=== PATIENT | female | born 1950 | race Caucasian/White ===

== ENCOUNTER → 2018-06-08 | Outpatient (CLI) | payer MEDICARE, BC ==
--- NOTE | 2018-06-08 13:16 | KCIC ---
3d digital tomography Bilateral History: Routine screening Technique: Bilateral 3d digital tomographic views were obtained with TASS Emily and reviewed on a [employer] workstation. In addition, CAD - computer aided detection was utilized. Comparison: None. Findings: Breast Tissue Density B : The breast tissue is composed of mixed fatty and fibroglandular tissue. There are no suspicious masses, microcalcifications or areas of architectural distortion. Impression: No suspicious findings. BI-RADS Category 1: Negative. Normal interval followup. The patient will receive a letter with the results in the mail. A mammogram does not have 100% sensitivity and therefore a negative imaging study should not delay further work up of a suspicious abnormality. Patient information is entered into the [facility] reminder system using [employer] with a target due date for the next screening mammogram. The patient will receive a reminder. "Our facility is accredited by the [employer] Mammography Program." Electronically signed by: Evens Spencer III, MD (06/08/2018 1:12 PM) [facility]
== END | disposition home or self-care (01) ==
LOC: KCIC MAMMO 08:12
PROVIDERS: ATTEND Family Medicine
DX: Z12.31 Encounter for screening mammogram for malignant neoplasm of breast (principal)
CPT/HCPCS: 77063; 77067

== ENCOUNTER → 2019-02-28 | Outpatient (CLI) | payer MEDICARE, BC ==
[~2019-02-28] MED LIST: ZOLPIDEM 5 MG TABLET. PO ONE
--- NOTE | 2019-03-01 13:18 | SLEEP ---
DATE OF STUDY: 02/28/2019 SLEEP STUDY ATTENDING PHYSICIAN: Belkys Watters MD HISTORY OF PRESENT ILLNESS: The patient is a 68-year-old who weighs 155 pounds with a BMI of 29. The patient's Boles score was 8. The patient underwent sleep study at [facility]. This was a diagnostic study. She had a previous sleep study in 2011 was positive for obstructive sleep apnea. She needs a new CPAP machine. During the night study, the patient spent 463 minutes in bed and slept for 284 minutes with a sleep efficiency of 61%, which was low. Sleep latency was 24 minutes with a REM latency of 414 minutes. Sleep architecture showed increased stage 1 sleep, normal stage 2 sleep, normal slow wave and reduced REM sleep. During the night study, the patient had 6 obstructive apneas, 15 mixed apneas, no central apneas and 47 hypopneas. The patient's apnea hypopnea index was 14 per hour with a supine index of 22 per hour and REM index of 9 per hour. EKG monitoring revealed normal sinus rhythm, average heart rate 80 beats per minute, no sustained arrhythmias observed. Nocturnal oximetry study revealed a mean oxygen saturation 94% with the lowest of 86%. 14% of time oxygen saturation remained between 80% and 89%. PLMS were seen at index of 32 per hour and 8 per hour caused EEG arousals. Due to low AHI, the patient did not meet the split night criteria for CPAP initiation. IMPRESSION: 1. Mild sleep apnea-hypopnea syndrome with moderate increase during supine sleep. Total AHI 14 per hour with a supine AHI of 22 per hour. 2. Nocturnal hypoxia secondary to obstructive sleep apnea. 3. Moderate periodic limb movements. RECOMMENDATIONS: 1. If the patient is clinically symptomatic or has co-morbid conditions, then she would benefit from treatment of sleep apnea with either oral appliance or a trial of CPAP. 2. Weight loss is strongly advised. 3. Avoid supine sleep. 4. Once the patient is optimally treated, then follow up in 4-6 weeks to assess compliance with treatment and to document clinical improvement. 5. Caution regarding driving until symptoms of sleep apnea resolve with above recommendation. 6. The patient should also be further evaluated for symptoms of restless legs during the day. ZHENG HENNESSY MD DR: MOISE/tita JOB#: [id number] / [id number] BELKYS Kingston MD [facility]
== END | disposition home or self-care (01) ==
LOC: SLPLAB 19:10
PROVIDERS: ATTEND Family Medicine
DX: G47.33 Obstructive sleep apnea (adult) (pediatric) (principal); G47.34 Idiopathic sleep related nonobstructive alveolar hypoventilation
CPT/HCPCS: 95810

== ENCOUNTER → 2019-03-27 | Outpatient (CLI) | payer MEDICARE, BC ==
--- NOTE | 2019-03-28 13:46 | SLEEP ---
DATE OF STUDY: 03/27/2019 OBJECTIVE: The patient is a 68-year-old female previously studied on 02/28/2019. The apnea-hypopnea index was 14 events per hour of sleep and the patient now returns for CPAP titration study. INTERPRETATION: Sleep architecture is characterized by sleep efficiency of 86% across the 7.1 hours of recording time. Stage volumes are normal for age. The overall apnea-hypopnea index is 2.6 events per hour of sleep. CPAP titration is accomplished, the apnea-hypopnea index on 9 cm of CPAP is 0 events per hour of sleep. An 85 periodic limb movements of sleep occurred per hour, 11 per hour associated with arousal. No cardiac arrhythmias are observed. IMPRESSION: Successful CPAP titration on 9 cm using a Respironics DreamWear nasal cushion, medium size. RECOMMENDATIONS: 1. The patient should be established on this setting. 2. She should avoid sedatives and alcohol and pursue weight loss. Thank you for letting us help with the patient's care. OLGA CASTANO MD DR: MIGUEL/tita JOB#: [id number] / [id number] ZHENG Rosa MD, MARGARET MD
== END | disposition home or self-care (01) ==
LOC: RT 18:50
PROVIDERS: ATTEND Family Medicine
DX: G47.33 Obstructive sleep apnea (adult) (pediatric) (principal)
CPT/HCPCS: 95811

== ENCOUNTER 2019-05-31 08:58 | Observation (INO) | payer MEDICARE, BC ==
[~2019-05-31] VITALS: Ht 154.9 cm; Wt 70.0 kg
[2019-05-31] VITALS (16 sets, daily range): BP systolic 128–187; BP diastolic 69–88
[2019-05-31] MEDS ORDERED: LIDOCAINE 1% PF 2 ML VIAL. ONE (09:37)
[2019-05-31 09:38] LABS: HEMATOCRIT 38.1 % (36.0-47.0); HEMOGLOBIN 12.8 g/dL (12.0-15.5); RED BLOOD COUNT 4.34 x10^6/uL (3.50-5.40); RED CELL DISTRIBUTION WIDTH 14.2 % (11.5-14.5); WHITE BLOOD COUNT 6.4 x10^3/uL (4.0-11.0)
[2019-05-31] MEDS ORDERED: IODIXANOL 320 MG/ML 100 ML VIAL. ONE (09:38)
[2019-05-31] MEDS ORDERED: HEPARIN for IV BOLUS 10,000 UNIT/10 ML VIAL. ONE (09:41)
[2019-05-31] MEDS ORDERED: NITROGLYCERIN 200 MCG/2 ML SYRINGE FOR CATH/VASC LAB. ONE (09:41)
[2019-05-31] MEDS ORDERED: VERAPAMIL 5 MG/2 ML VIAL. ONE (09:41)
[2019-05-31] MEDS ORDERED: fentaNYL PF VIAL 100 MCG/2 ML VIAL ONE (09:41)
[2019-05-31] MEDS ORDERED: MIDAZOLAM HCL/PF 2 MG/2 ML VIAL. ONE ×2 (09:41→11:01)
[2019-05-31] MEDS ORDERED: BUTA1CAP31 PO (09:43)
[2019-05-31] MEDS ORDERED: CALC500T30 PO (09:43)
[2019-05-31] MEDS ORDERED: FLUT9.9S NS (09:43)
[2019-05-31] MEDS ORDERED: METF10007 PO (09:43)
[2019-05-31] MEDS ORDERED: IRBE300T3 PO (09:43)
[2019-05-31] MEDS ORDERED: DIAZ5TAB4 PO (09:43)
[2019-05-31] MEDS ORDERED: GUAI600T47 PO (09:43)
[2019-05-31] MEDS ORDERED: CETI10TA22 PO (09:43)
[2019-05-31] MEDS ORDERED: ASPI325T8 PO (09:43)
[2019-05-31] MEDS ORDERED: AMLO5TAB10 PO (09:43)
[2019-05-31] MEDS ORDERED: NAPR220C4 PO (09:43)
[2019-05-31] MEDS ORDERED: CHOL400C2 PO (09:43)
[2019-05-31] MEDS ORDERED: MULT-735 PO (09:43)
[2019-05-31] MEDS ORDERED: ZINC50TA39 PO (09:43)
[2019-05-31] MEDS ORDERED: MAGN250T10 PO (09:43)
[2019-05-31] MEDS ORDERED: ATOR40TA59 PO (09:43)
[2019-05-31] MEDS ORDERED: TRIA10.8 NS (09:43)
[2019-05-31 09:44] LABS: CALCIUM 9.6 mg/dL (8.5-10.1); CREATININE 0.8 mg/dL (0.6-1.0); GFR 71.3; POTASSIUM 4.1 mmol/L (3.5-5.1)
[2019-05-31 09:46] LABS: PROTHROMBIN TIME PATIENT 12.7 SEC (11.7-14.0)
[2019-05-31] MEDS ORDERED: fentaNYL PF VIAL 100 MCG/2 ML VIAL IV ONE (11:00)
[2019-05-31] MEDS ORDERED: LIDOCAINE 1% PF 2 ML VIAL. INJ ONE (11:00)
[2019-05-31] MEDS ORDERED: CONTRAST GIVEN. MC PRN (11:00)
[2019-05-31] MEDS ORDERED: HEPARIN for IV BOLUS 10,000 UNIT/10 ML VIAL. IART ONE (11:00)
[2019-05-31] MEDS ORDERED: VERAPAMIL 5 MG/2 ML VIAL. IART ONE (11:00)
[2019-05-31] MEDS ORDERED: NITROGLYCERIN 200 MCG/2 ML SYRINGE FOR CATH/VASC LAB. IART ONE (11:00)
[2019-05-31] MEDS ORDERED: IODIXANOL 320 MG/ML 100 ML VIAL. IART ONE (11:00)
[2019-05-31] MEDS ORDERED: MIDAZOLAM HCL/PF 2 MG/2 ML VIAL. IV ONE (11:00)
[2019-05-31] MEDS ORDERED: TIROFIBAN 5MG -0.9% NS 100 ML IV ONE (11:11)
[2019-05-31] MEDS ORDERED: ASPI81TA50 PO (11:17)
[2019-05-31] MEDS ORDERED: PRASUGREL 10 MG TABLET. ONE ×2 (11:25→11:53)
[2019-05-31] MEDS ORDERED: HEPARIN for IV BOLUS 10,000 UNIT/10 ML VIAL. IV ONE (11:30)
[2019-05-31] MEDS ORDERED: NITROGLYCERIN 200 MCG/2 ML SYRINGE FOR CATH/VASC LAB. ICAR ONE (11:30)
[2019-05-31] MEDS: TIROFIBAN 5MG -0.9% NS 100 ML IV PRN ×2 (11:47→14:57)
[2019-05-31] MEDS ORDERED: PRASUGREL 10 MG TABLET. PO ONE (12:00)
--- NOTE | 2019-05-31 12:08 | CARD ---
MR#: [id number] Date of Study: 05/31/2019 Ordering Physician: CLEM QUINONES, Referring Physician: CLEM QUINONES, Tech: Jaja Vines APPROVED REPORT Technologist: Jaja Vines Nurse: Edel Claros R.N. Procedure(s) performed: fl time: 14.1 mins dose: 69 gy/cm2 contrast: 136 ml moderate sedation: 100 mins LHC, Coronary angiography PCI of the LAD iFR of the LAd HISTORY The patient is a 68 year-old female with a history of : coronary artery disease, hypertension, dyslip idemia. INDICATION The indication(s) include : unstable angina , dyspnea. CSHA Clinical Frailty Scale CSHA Clinical Frailty Scale: Mildly Frail Heart Failure Heart Failure: No PROCEDURE NARRATIVE INFORMED CONSENT: After explaining the risks and benefits of the procedure and alternatives, informed consent was obtained. The patient was brought electively to the cardiac catheterization lab. A timeout was performed confi rming the patient's name, date of , procedure, and site of procedure. All necessary personnel w ere wearing the appropriate protective equipment and radiation monitor devices. (See nursing notes for medications administered). ACCESS: The right wrist was sterilely prepped and draped in the usual fashion. The right wrist was infiltrat ed with 1 mL of 2% lidocaine for subcutaneous anesthesia. A 6 [place]ian Terumo glide sheath was inserte d into the right radial artery without difficulty. CORONARY ANGIOGRAPHY: Right and left coronary angiography was performed using a 6Fr TIG 4.0 catheter. Left ventricular en d diastolic pressure was obtained with a pigtail catheter and pullback was performed after left ventr iculography. All catheter exchanges and advancements were performed over a guidewire. FINDINGS: HEMODYNAMICS: LVEDP 12 mm Hg No gradient on LV to aortic pullback. AO: 140/70 LEFT VENTRICULOGRAM: EF 55% Anterobasal: Normal. Anterolateral: Normal Apical: Normal Diaphragmatic: Normal Posterobasal: Normal CORONARY ANGIOGRAPHY: LM - anatomic seperate ostia of the LAD/LCx. LAD is a large caliber vessel with heavy calcification and a proximal 80% stenosis. LCx is a large caliber dominant vessel with normal angiographic appearance. OM1 is a moderate caliber vessel with normal angiographic appearance. LPDA is a small caliber vessel with normal angiographic appearance. RCA is a small caliber non-dominant vessel with moderate up to 50% irregularities. INTERVENTIONAL TECHNIQUE: iFR of the LAD and PCI of the LAD Due to the patient's presenting symptoms of unstable angina and severe LAD stenosis a physiologic avery dy was performed to confirm ischemia in the LAD territory. Heparin and tirofiban were used for antico agulation. Through a 5 [place]ian EBU 3.5 guide catheter a 0.014 inch pressure wire was advanced to the d istal LAD after normalization. The initial IFR value was measured at 0.76. After confirmation of isch emia in this territory the proximal LAD lesion was then angioplastied with a 3.0 x 12 mm balloon at 1 2 kiara. The lesion was then stented with a 3.0 x 15 mm Alpine drug-eluting stent and postdilated with a 3 mm noncompliant balloon at 18 kiara. Final post-PCI angiography revealed excellent stent expansion with SUGAR-3 flow in the vessel and no evidence of guide or wire related complications. Post PCI IFR v alue was 0.92. The patient tolerated the procedure well. This was a complex case due to significant L AD calcification making maneuvering of balloons and stents more difficult. CLOSURE: At case completion the right radial sheath was removed and a Terumo radial band was applied with 13 m l of air. COMPLICATIONS: The patient tolerated the procedure well and there were no immediate complications. SUGAR Flow SUGAR Flow (Pre-Intervention): SUGAR-3 SUGAR Flow (Post-Intervention): SUGAR-3 Conclusion 1. Normal left sided filling pressures. 2. Normal LV systolic function. 3. Two vessel CAD with culprit lesion in the proximal to mid LAD 4. Positive iFR of the LAD at 0.76 5. Successful PCI of the proximal LAD with implantation of a Xience Alpine 3.0/15 mm NISA. Recommendations 1. ASA 81mg daily 2. Prasugrel 10mg daily 3. High dose statin therapy and cardiac rehab therapy. Signed by : Clem Quinones, Electronically Approved : 05/31/2019 12:08:01
[2019-05-31] MEDS ORDERED: AMIODARONE 150 MG in IV DEXTROSE 5% 100ML 100 ML IV PRN (14:15)
[2019-05-31] MEDS ORDERED: ATROPINE 0.5 MG/5 ML DISP.SYRINGE. IV PRN (14:15)
[2019-05-31] MEDS ORDERED: diazePAM 5 MG TABLET PO PRN (14:15)
[2019-05-31] MEDS ORDERED: 0.9 % SODIUM CHLORIDE 10 ML DISP.SYRIN. IV PRN (14:15)
[2019-05-31] MEDS ORDERED: ACETAMINOPHEN 325 MG TABLET. PO PRN (14:15)
[2019-05-31] MEDS ORDERED: NITROGLYCERIN SUBLINGUAL 0.4 MG BOTTLE OF 25. SL PRN (14:15)
[2019-05-31] MEDS ORDERED: LIDOCAINE 2% 100 MG/5 ML SYRINGE. IV PRN (14:15)
[2019-05-31] MEDS ORDERED: fentaNYL PF VIAL 100 MCG/2 ML VIAL IV PRN (14:15)
[2019-05-31] MEDS ORDERED: BUTALB/APAP/CAFEIN 50/325/40MG TABLET. PO PRN (15:00)
[2019-05-31] MEDS ORDERED: ATORVASTATIN CALCIUM 40 MG TABLET. PO SCH (21:00)
[2019-05-31] MEDS ORDERED: amLODIPine BESYLATE 5 MG TABLET PO SCH (21:00)
[2019-05-31] MEDS ORDERED: CETIRIZINE HCL 10 MG TABLET. PO SCH (21:00)
[2019-06-01 03:00] VITALS: BP 149/72
[2019-06-01 04:35] LABS: CHOLESTEROL/HDL RATIO 3.6; CREATININE 0.8 mg/dL (0.6-1.0); GFR 71.3; POTASSIUM 3.6 mmol/L (3.5-5.1)
[2019-06-01 07:30] VITALS: BP 166/97
[2019-06-01] MEDS ORDERED: ASPIRIN ENTERIC COATED 81 MG TABLET.DR. PO SCH ×2 (08:00→09:00)
[2019-06-01] MEDS ORDERED: PRASUGREL 10 MG TABLET. PO SCH (08:00)
[2019-06-01] MEDS ORDERED: CALCIUM CARBONATE 500 MG TABLET PO SCH (09:00)
[2019-06-01] MEDS ORDERED: LOSARTAN POTASSIUM 50 MG TABLET. PO SCH (09:00)
[2019-06-01] MEDS ORDERED: FLUTICASONE 50MCG/NASAL SPRAY 16GM BOTTLE. NS SCH (09:00)
[2019-06-01] MEDS ORDERED: MULTIVITAMIN with MINERAL TABLET. PO SCH (09:00)
[2019-06-01] MEDS ORDERED: CHOLECALCIFEROL (VITAMIN D3) 1,000 UNIT TABLET PO SCH (09:00)
[2019-06-01] MEDS ORDERED: MAGNESIUM OXIDE 400 MG TABLET PO SCH (09:00)
--- NOTE | 2019-06-01 09:54 | PDOC3 ---
Discharge Summary Visit Information Date of Admission: May 31, 2019 Date of Discharge: Jun 01, 2019 Admitting Diagnosis: CAD, UA features Final Diagnosis CAD, S/P PCI/NISA to LAD Brief Hospital Course Allergies Allergies Coded Allergies Type Severity Reaction Last Updated Verified Sulfa (Sulfonamide Antibiotics) Allergy Unknown 05/31/19 Yes egg Allergy Unknown 05/31/19 Yes milk Allergy Unknown 05/31/19 Yes wheat Allergy Unknown 05/31/19 Yes Vital Signs Vital Signs Date Time Temp Pulse Resp B/P (MAP) Pulse Ox O2 Delivery O2 Flow Rate FiO2 06/01/19 09:23 80 166/97 06/01/19 07:30 98.2 16 97 Room Air 98.2 05/31/19 11:49 2.0 Lab Results Laboratory Tests Test 05/31/19 09:25 05/31/19 09:30 05/31/19 12:34 05/31/19 17:02 White Blood Count 6.4 x10^3/uL (4.0-11.0) Red Blood Count 4.34 x10^6/uL (3.50-5.40) Hemoglobin 12.8 g/dL (12.0-15.5) Hematocrit 38.1 % (36.0-47.0) Mean Corpuscular Volume 88 fL (79-100) Mean Corpuscular Hemoglobin 30 pg (25-35) Mean Corpuscular Hemoglobin Concent 34 g/dL (31-37) Red Cell Distribution Width 14.2 % (11.5-14.5) Platelet Count 428 x10^3/uL (140-400) Prothrombin Time 12.7 SEC (11.7-14.0) Prothromb Time International Ratio 1.0 (0.8-1.1) Activated Partial Thromboplast Time 27 SEC (24-38) Sodium Level 141 mmol/L (136-145) Potassium Level 4.1 mmol/L (3.5-5.1) Chloride Level 102 mmol/L (98-107) Carbon Dioxide Level 26 mmol/L (21-32) Anion Gap 13 (6-14) Blood Urea Nitrogen 13 mg/dL (7-20) Creatinine 0.8 mg/dL (0.6-1.0) Estimated GFR (Cockcroft-Gault) 71.3 Glucose Level 121 mg/dL (70-99) Calcium Level 9.6 mg/dL (8.5-10.1) Glucose (Fingerstick) 116 mg/dL (70-99) 102 mg/dL (70-99) 120 mg/dL (70-99) Test 05/31/19 20:29 06/01/19 04:00 06/01/19 07:33 Glucose (Fingerstick) 124 mg/dL (70-99) 148 mg/dL (70-99) Sodium Level 142 mmol/L (136-145) Potassium Level 3.6 mmol/L (3.5-5.1) Chloride Level 106 mmol/L (98-107) Carbon Dioxide Level 25 mmol/L (21-32) Anion Gap 11 (6-14) Blood Urea Nitrogen 14 mg/dL (7-20) Creatinine 0.8 mg/dL (0.6-1.0) Estimated GFR (Cockcroft-Gault) 71.3 Glucose Level 113 mg/dL (70-99) Calcium Level 9.0 mg/dL (8.5-10.1) Triglycerides Level 93 mg/dL (0-150) Cholesterol Level 126 mg/dL (0-200) LDL Cholesterol, Calculated 72 mg/dL (0-100) VLDL Cholesterol, Calculated 19 mg/dL (0-40) Non-HDL Cholesterol Calculated 91 mg/dL (0-129) HDL Cholesterol 35 mg/dL (40-60) Cholesterol/HDL Ratio 3.6 Laboratory Tests Test 05/31/19 12:34 05/31/19 17:02 05/31/19 20:29 06/01/19 04:00 Glucose (Fingerstick) 102 mg/dL (70-99) 120 mg/dL (70-99) 124 mg/dL (70-99) Sodium Level 142 mmol/L (136-145) Potassium Level 3.6 mmol/L (3.5-5.1) Chloride Level 106 mmol/L (98-107) Carbon Dioxide Level 25 mmol/L (21-32) Anion Gap 11 (6-14) Blood Urea Nitrogen 14 mg/dL (7-20) Creatinine 0.8 mg/dL (0.6-1.0) Estimated GFR (Cockcroft-Gault) 71.3 Glucose Level 113 mg/dL (70-99) Calcium Level 9.0 mg/dL (8.5-10.1) Triglycerides Level 93 mg/dL (0-150) Cholesterol Level 126 mg/dL (0-200) LDL Cholesterol, Calculated 72 mg/dL (0-100) VLDL Cholesterol, Calculated 19 mg/dL (0-40) Non-HDL Cholesterol Calculated 91 mg/dL (0-129) HDL Cholesterol 35 mg/dL (40-60) Cholesterol/HDL Ratio 3.6 Test 06/01/19 07:33 Glucose (Fingerstick) 148 mg/dL (70-99) Brief Hospital Course Ms. Riggins is a 68 old yo female admitted for planned LHC. As an outpt she was noted with elevated coronary calcium scoring and has been having UA symptoms. She had a successful PCI/NISA to LAD and also noted with moderate disease to RCA. EF normal. Her VS has been stable except that her BP has been mildly elevated. She also has been noted also with noc sinus bradycardia lowest in the mid40s. Otherwise no CP, no SOA and no immediate complications. Right wrist arteriotomy site intact, no erythema or swelling, neurovascular status to right hand intact. She is to resume her metformin tomorrow afternoon and continue her current BP regimen. HBPM bid for 1 week discussed and will adjust as an outpt if above discussed parameters. High dose statin with 81 mg ASA and effient. Unable to place on BB currently due to episodes of bradycardia. Encouraged cardiac rehab. Discharge Information Condition at Discharge: Stable Follow Up: Weeks (4-6) Disposition/Orders: D/C to Home Scheduled Amlodipine Besylate (Amlodipine Besylate) 5 Mg Tablet, 5 MG PO HS for HTN, (Reported) Entered as Reported by: ANGEL BELCHER on 05/31/19 0943 Last Taken: Unknown Dose on 05/30/19 Last Action: Continued on 05/31/19 141 by LINDY GONZALEZ RN Aspirin (Aspir-Low) 81 Mg Tablet., 1 TAB PO DAILY for rx, #30 Ref 3 (Reported) Entered as Reported by: BRAD DE SOUZA on 05/31/19 1117 Last Taken: Unknown Dose on 05/31/19 0600 Last Action: Continued on 05/31/19 1418 by LINDY GONZALEZ RN Atorvastatin Calcium (Atorvastatin Calcium) 40 Mg Tablet, 1 TAB PO QHS for cholesterol, #90 Ref 3 (Reported) Entered as Reported by: ANGEL BELCHER on 05/31/19942 Last Taken: Unknown Dose on 05/30/19 Last Action: Continued on 05/31/191417 by LINDY GONZALEZ RN Calcium Carbonate (Calcium) 500 Mg Tablet, 1 TAB PO DAILY for supplement for 30 Days, #30 Ref 0 (Reported) Entered as Reported by: ANGEL BELCHER on 05/31/19942 Last Action: Continued on 05/31/191417 by LINDY GONZALEZ RN Cetirizine Hcl (Zyrtec) 10 Mg Tablet, 1 TAB PO HS for allergies, #30 Ref 2 (Reported) Entered as Reported by: ANGEL BELCHER on 05/31/19942 Last Action: Continued on 05/31/191417 by LINDY GONZALEZ RN Cholecalciferol (Vitamin D3) (Vitamin D) 400 Unit Capsule, 1 CAP PO DAILY for supplement for 30 Days, #30 Ref 0 (Reported) Entered as Reported by: ANGEL BELCHER on 05/31/19942 Last Taken: Unknown Dose on 05/30/19 Last Action: Converted on 05/31/191417 by LINDY GONZALEZ RN Fluticasone Propionate (Flonase Allergy Relief) 9.9 Ml [place].susp, 2 SPRAYS NS DAILY for nasal congestion, (Reported) Entered as Reported by: ANGEL BELCHER on 05/31/19942 Last Action: Converted on 05/31/191417 by LINDY GONZALEZ RN Irbesartan (Irbesartan) 300 Mg Tablet, 1 TAB PO DAILY for HTN, #30 Ref 5 (Reported) Entered as Reported by: ANGEL BELCHER on 05/31/19942 Last Taken: Unknown Dose on 05/31/19 Last Action: Converted on 05/31/191417 by LINDY GONZALEZ RN Magnesium Oxide (Magnesium) 250 Mg Tablet, 1 TAB PO DAILY for supplement for 30 Days, #30 Ref 0 (Reported) Entered as Reported by: ANGEL BELCHER on 05/31/19942 Last Action: Converted on 05/31/191417 by LINDY GONZALEZ RN Metformin Hcl (Metformin Hcl) 1,000 Mg Tablet, 1,000 MG PO BIDWMEALS for diabetes, (Reported) Entered as Reported by: ANGEL BELCHER on 05/31/19942 Last Taken: Unknown Dose on 05/30/19 Last Action: New Order on 05/31/19942 by ANGEL BELCHER Multivitamin (One-Daily Multi-Vitamin) 1 Each Tablet, 1 TAB PO DAILY for supplement for 30 Days, #30 Ref 0 (Reported) Entered as Reported by: ANGEL BELCHER on 05/31/19942 Last Taken: Unknown Dose on 05/30/19 Last Action: Converted on 05/31/191417 by LINDY GONZALEZ RN Prasugrel Hcl (Effient) 10 Mg Tablet, 10 MG PO AFTRNOON for Blood thinner, (Reported) Entered as Reported by: LINDY GONZALEZ RN on 06/01/19 1210 Triamcinolone Acetonide (Nasacort) 10.8 Ml [place], 2 SPRAY NS QHS for nasal congestion for 30 Days, Ref 0 (Reported) Entered as Reported by: ANGEL BELCHER on 05/31/19942 Last Action: New Order on 05/31/19942 by ANGEL BELCHER Zinc (Zinc) 50 Mg Tablet, 1 TAB PO DAILY for supplement for 30 Days, #30 Ref 0 (Reported) Entered as Reported by: ANGEL BELCHER on 05/31/19942 Last Action: New Order on 05/31/19942 by ANGEL BELCHER Scheduled PRN Aspirin (Aspirin) 325 Mg Tablet, 1 TAB PO PRN PRN for PAIN, #30 Ref 5 (Reported) Entered as Reported by: ANGEL BELCHER on 05/31/19942 Last Action: New Order on 05/31/19942 by ANGEL BELCHER Butalbital/Aspirin/Caffeine (Fiorinal 50-325-40 Mg Capsule) 1 Each Capsule, 1 CAP PO PRN PRN for MIGRAINE HEADACHE, (Reported) Entered as Reported by: ANGEL BELCHER on 05/31/19942 Last Action: Converted on 05/31/191417 by LINDY GONZALEZ RN Diazepam (Diazepam) 5 Mg Tablet, 5 MG PO PRN BID PRN for ANXIETY / AGITATION, (Reported) Entered as Reported by: ANGEL BELCHER on 05/31/19942 Last Taken: Unknown Dose on 05/31/19 Last Action: Continued on 05/31/191417 by LINDY GONZALEZ RN Guaifenesin (Mucinex) 600 Mg Tablet.er, 1 TAB PO PRN PRN for CONGESTION for 10 Days, Ref 0 (Reported) Entered as Reported by: ANGEL BELCHER on 05/31/19942 Last Action: Continued on 05/31/191417 by LINDY GONZALEZ RN Naproxen Sodium (Aleve) 220 Mg Capsule, 220 MG PO PRN PRN for PAIN, (Reported) Entered as Reported by: ANGEL BELCHER on 05/31/19942 Last Action: New Order on 05/31/19942 by ANGEL BELCHER Patient Instructions Patient Instructions GENERAL INSTRUCTIONS: 1. Your dressing should be removed prior to leaving the hospital. 2. It is OK to shower the day after your procedure. 3. If you received stents, be sure to carry your stent information card with you in your wallet/purse at all times. 4. Call the office immediately at [phone] if you notice any fever or if there is redness, worsening tenderness/pain, increased bruising, or drainage from the puncture site. 5. Should you have bleeding from the site, lie down immediately & put pressure on the site. The pressure should be hard enough to stop the bleeding. Have the nearest person call 911. DO NOT try to drive to the ER with ac tive bleeding. 6. If you notice a change in color, coolness to touch, or loss of feeling in the affected extremity, come to the emergency room. Please have someone drive you or call 911 if no one is available. DO NOT drive yourself. 7. If you normally take glucophage (metformin), please do not take this medicine for 48 hours following your procedure. 8. DO NOT STOP TAKING YOUR PLAVIX OR ASPIRIN UNLESS IT IS CLEARED BY A DEBONING TEAM LEADER OF YOUR SHIPPING ROOM HELPER AT OUR OFFICE. 9. QUIT SMOKING: the [place] [employer], [employer], & [employer] have cessation resources available on their websites 10. Please have someone available to drive you home from the hospital as you may be limited by sedation medications given during the procedure. Radial Artery (Wrist) access: 1. No pushing, pulling, lifting, typing, or anything that requires repetitive use/movement of the affected wrist for 3 days following your procedure. 2. OK to drive the day following your procedure. (This is because of effects of sedating medications.) Call the office at [phone] for any questions or concerns. PRICILLA WILLIAMSON APRN Jun 01, 2019 09:54
[2019-06-01 10:09] VITALS: BP 148/79
[2019-06-01] MEDS ORDERED: PRAS10TA9 PO (12:10)
--- NOTE | 2019-06-01 13:40 | NUR ---
Discharge Note: BROOKE MOMIN Discharge instructions and discharge home medications reviewed with Patient and a copy given. All questions have been answered and understanding verbalized. The following instructions and handouts were given: post heart cath, cardiac diet, and CAD. Discontinued iv line and catheter intact. Patient discharged to home with self-care via private vehicle.
== END 2019-06-01 12:30 | disposition home or self-care (01) ==
LOC: CCL 08:58 → 2 NORTH 11:10
PROVIDERS: ADMIT Internal Medicine Cardiovascular Disease; ATTEND Internal Medicine Cardiovascular Disease
DX: I25.10 Atherosclerotic heart disease of native coronary artery without angina pectoris (principal); Z79.84 Long term (current) use of oral hypoglycemic drugs
CPT/HCPCS: 36415; 80048; 80061; 82962; 85027; 85610; 85730; 92928; 93458; 93571; 96365; 96366; 96375; C1725; C1769; C1874; C1887; C1892; G0378; G0379; J1644; J2250; J3010; J3490; Q9967; 99152; 99153; C1713; J3246

== ENCOUNTER → 2020-01-28 | Outpatient (CLI) | payer MEDICARE, BC ==
[~2020-01-28] MED LIST changes: +AMLO5TAB10 PO; +ASPI325T8 PO; +ASPI81TA50 PO; +ATOR40TA59 PO; +BUTA1CAP31 PO; +CALC500T30 PO; +CETI10TA74 PO; +CHOL400C2 PO; +DIAZ5TAB4 PO; +FLUT9.9S NS; +GUAI600T47 PO; +IRBE300T23 PO; +MAGN250T10 PO; +METF10007 PO; +MULT-735 PO; +NAPR220C4 PO; +PRAS10TA9 PO; +TRIA10.8 NS; +ZINC50TA39 PO; -ZOLPIDEM 5 MG TABLET. PO ONE
[2020-01-28 09:03] LABS: CHOLESTEROL/HDL RATIO 2.5
--- NOTE | 2020-01-28 09:40 | CARD ---
MR#: [id number] Date of Study: 01/28/2020 Ordering Physician: CLEM QUINONES, Referring Physician: CLEM QUINONES, Tech: Maddie Helton [facility] APPROVED REPORT EXAM: Two-dimensional and M-mode echocardiogram with Doppler and color Doppler. Other Information Quality : GoodHR: 68bpm Rhythm : NSR INDICATION CAD Surgery/Intervention S/P stent RISK FACTORS Hypertension Hyperlipidemia Family History Diabetes 2D DIMENSIONS RVDd3.1 (2.9-3.5cm)Left Atrium(2D)3.7 (1.6-4.0cm) IVSd1.1 (0.7-1.1cm)Aortic Root(2D)3.2 (2.0-3.7cm) LVDd4.0 (3.9-5.9cm)LVOT Diameter2.0 (1.8-2.4cm) PWd0.9 (0.7-1.1cm)LVDs2.5 (2.5-4.0cm) FS (%) 38.4 %SV49.4 ml LVEF(%)69.2 (>50%) Aortic Valve AoV Peak Bhaskar.137.7cm/sAoV VTI24.0cm AO Peak GR.0.0mmHgLVOT Peak Bhaskar.105.5cm/s AO Mean GR.3mmHgAVA (VMAX)2.43cm2 Mitral Valve MV E Kdysvskw60.5cm/sMV DECEL [id number] MV A Bbclloqv60.6cm/sE/A Ratio0.7 Pulmonary Valve PV Peak Einhzrjy66.1cm/s Tricuspid Valve TR P. Hgbjpypo022ai/sTR Peak Gr.25mmHg Pulmonary Vein S1 Ustnvfea14.9cm/sD2 Afozsflo81.6cm/s PVa [id number] LEFT VENTRICLE The left ventricle is normal size. There is borderline concentric left ventricular hypertrophy. The l eft ventricular systolic function is normal. The Ejection fraction is 60-65%. There is normal LV segm ental wall motion. Transmitral Doppler flow pattern is Grade I-abnormal relaxation pattern. RIGHT VENTRICLE The right ventricle is normal size. There is normal right ventricular wall thickness. The right ventr icular systolic function is normal. ATRIA The left atrium size is normal. The right atrium size is normal. The interatrial septum is intact wit h no evidence for an atrial septal defect or patent foramen ovale as noted on 2-D or Doppler imaging. AORTIC VALVE The aortic valve is normal in structure and function. Doppler and Color Flow revealed no significant aortic regurgitation. There is no significant aortic valvular stenosis. MITRAL VALVE The mitral valve is normal in structure and function. There is no evidence of mitral valve prolapse. There is no mitral valve stenosis. Doppler and Color-flow revealed mild mitral regurgitation. TRICUSPID VALVE The tricuspid valve is normal in structure and function. Doppler and Color Flow revealed trace to mil d tricuspid regurgitation. Estimated PAP IS 28 mmHg. There is no tricuspid valve stenosis. GREAT VESSELS The aortic root is normal in size. The ascending aorta is normal in size. The pulmonary artery is nor mal. The IVC is normal in size and collapses >50% with inspiration. PERICARDIAL EFFUSION There is no evidence of significant pericardial effusion. Critical Notification Critical Value: No <Conclusion> The left ventricular systolic function is normal. The Ejection fraction is 60-65%. There is normal LV segmental wall motion. Transmitral Doppler flow pattern is Grade I-abnormal relaxation pattern. Mild mitral regurgitation. Trace to mild tricuspid regurgitation. Estimated PAP IS 28 mmHg. There is no evidence of significant pericardial effusion. Signed by : Luis Eduardo Palacios, Electronically Approved : 01/28/2020 09:40:32
== END ==
LOC: ECHO 07:42
PROVIDERS: ATTEND Internal Medicine Cardiovascular Disease
DX: I08.1 Rheumatic disorders of both mitral and tricuspid valves (principal); I25.10 Atherosclerotic heart disease of native coronary artery without angina pectoris
CPT/HCPCS: 36415; 80061; 83721; 93306

== ENCOUNTER → 2021-06-08 | Outpatient (CLI) | payer MEDICARE, BC ==
[~2021-06-08] MED LIST changes: +AMLO-186 PO; -AMLO5TAB10 PO; +REGADENOSON 0.4 MG/5 ML DISP.SYRIN. IV ONE
--- NOTE | 2021-06-08 13:17 | RAD ---
MR#: [id number] Date of Study: 06/08/2021 Ordering Physician: VICTOR HUGO EDMOND, Referring Physician: MARLENE HOYT Tech: VERN Bernal, ARRT (R) (N) APPROVED REPORT Test Type: Pharmacological Stress Nurse/Tech: Pema Vazquez RN Test Indications: CAD Cardiac History: HTN, PTCA-2019, Increased Cholesterol, See EMR. Medications: ASA 81mg QD, See EMR. Medical History: DM, See EMR. Resting ECG: SR Resting Heart Rate: 72 bpm Resting Blood Pressure: 129/72mmHg Pretest Chest Pain: No chest pain Nurse/Tech Notes Lungs CTA, Heart tones regular. Consent: The procedure was explained to the patient in lay terms. Informed consent was witnessed. Boo eout was entered into [employer]. History and Stress Test performed by RT Merlyn (R) (N) Pharm. Details Pharmacologic stress testing was performed using 0.4mg per 5ml of regadenoson given intravenously ove r 7-10 seconds. Stress Symptoms Pt. felt dizzy and lightheaded @ 00:46 in stage R. This was resolved by 01:55 in stage R. POST EXERCISE Reason for Termination: Infusion complete Max HR: 104 bpm Max Blood Pressure: 129/69mmHg Blood Pressure response to exercise: Normal blood pressure response during stress. Heart Rate response to exercise: WNL Chest Pain: No. Arrhythmia: No. ST Change: No. INTERPRETATION Stress EKG Conclusion: Baseline EKG showed sinus rhythm. No ischemic changes at peak stress. No arr hythmias. Imaging Protocol IMAGE PROTOCOL: Rest Tc-99m/stress Tc-99m 1 day Rest: Stress: Viability: Radiopharm.Tc99m FyrvhxertVd74l Sestamibi [id number] 33mCi Img Date 06/08/2021 06/08/2021 Inj-Img [id number]. 60min. Rest Admin Site:IV - Right AntecubitalAdministrator:RT Merlyn (R)(N) Stress Admin Site: IV - Right AntecubitalAdministrator: Junior Falk, RT (R)(N) STRESS DATA End Diast. Vol.33.0mlAv. Heart Rate78.0bpm End Syst. Vol.1.0mlCO Index BSA0.0L/min Myocardial Mass76.0gEject. Vuaenswi51.0% Stress Rates Pk. Fill Rate3.76EDV/secLVtime Pk. Fill 188.52msec Pk. Empty Rate6.61ESV/secLVtime Pk. Offvq487.41msec 3 Pk. Fill1.79EDV/sec Stress Scores Regional WT0.00Summed WT0.00 Regional WM0.00Summed WM0.00 Study quality was good. Left Ventricular size was Normal at Rest and Stress. Lung uptake was . Left Ventricular ejection fraction is 89%. The rest and stress images show normal perfusion, normal contraction and thickening. LV Perf. Quant 17 Seg. SSS0.00 17 Seg. SRS0.00 17 Seg. SDS0.00 Stress Defect Extent (% LAD)0.00Rest Defect Extent (% LAD)0.00Rev. Defect Extent (% LAD)0.00 Stress Defect Extent (% LCX) 0.00Rest Defect Extent (% LCX)0.00Rev. Defect Extent (% LCX)0.00 Stress Defect Extent (% RCA)0.00Rest Defect Extent (% RCA)0.00Rev. Defect Extent (% RCA)0.00 Stress Defect Extent (% ESTEPHANIE)0.00Rest Defect Extent (% ESTEPHANIE)0.00Rev. Defect Extent (% ESTEPHANIE)0.00 Conclusion 1. Regadenoson cardioisotope stress test did not show any evidence of ischemia or infarct. 2. Normal left ventricular systolic function with ejection fraction calculated at 89%. 3. Low risk for cardiac events. Signed by : Victor Hugo Edmond, Electronically Approved : 06/08/2021 13:16:37
== END ==
LOC: NM 09:09
PROVIDERS: ATTEND Internal Medicine Cardiovascular Disease
DX: I25.10 Atherosclerotic heart disease of native coronary artery without angina pectoris (principal)
CPT/HCPCS: 78452; 93017; A9500; J2785